=== PATIENT | male | born 1975 | race Caucasian/White ===

== ENCOUNTER 2017-10-23 10:42 | Emergency (ER) | payer BC ==
[2017-10-23] MEDS: IBUPROFEN 600 MG TAB PO (12:19)
[2017-10-23] MEDS: HYDROCODONE/APAP (5/325) TAB PO (12:19)
== END 2017-10-23 13:46 | disposition home or self-care (01) ==
LOC: FTE 10:42
DX: S89.92XA Unspecified injury of left lower leg, initial encounter (principal); X58.XXXA Exposure to other specified factors, initial encounter; Y92.9 Unspecified place or not applicable; Z87.891 Personal history of nicotine dependence
CPT/HCPCS: 73550; 99283-25